=== PATIENT | male | born 1960 | race Caucasian/White ===

== ENCOUNTER 2017-09-08 19:00 | Emergency (ER) | payer MEDICAID ==
--- NOTE | 2017-09-08 19:31 | EDM.PDOC ---
ED HPI GENERAL MEDICAL PROBLEM - General Chief Complaint: ENT Problem Stated Complaint: FOOD STUCK IN HIS THROAT?? Time Seen by Provider: 09/08/17 19:08 Source of Information: Reports: Patient History Limitations: Reports: No Limitations - History of Present Illness INITIAL COMMENTS - FREE TEXT/NARRATIVE: Patient brought to ER via ambulance with food stuck in his throat. This started about 1.5 hours ago while eating supper. He was eating pork chops and thinks a piece stuck in throat. He tried to drink some water but it wouldn't go down but came back out. Then he vomited up some blood so he called 911. He denies dyspnea. - Related Data Allergies Allergy/AdvReac Type Severity Reaction Status Date / Time aspirin Allergy Nausea Verified 09/08/17 19:05 Sulfa (Sulfonamide Allergy Nausea and Verified 09/08/17 19:05 Antibiotics) Vomiting Home Meds: Home Meds Aspirin [Ecotrin] 81 mg PO DAILY 09/08/17 [History] Benazepril [Lotensin] 10 mg PO DAILY 09/08/17 [History] Metoprolol Succinate [Toprol Xl] 50 mg PO DAILY 09/08/17 [History] Niacin [Niacin ER] 1 gm PO BEDTIME 09/08/17 [History] amLODIPine Besylate [Norvasc] 5 mg PO DAILY 09/08/17 [History] ED ROS ENT - Review of Systems Review Of Systems: See Below Constitutional: Denies: Fever, Weakness HEENT: Reports: Throat Pain. Denies: Vision Change Respiratory: Denies: Shortness of Breath, Wheezing, Cough Cardiovascular: Denies: Chest Pain, Lightheadedness, Syncope GI/Abdominal: Denies: Abdominal Pain, Diarrhea, Nausea, Vomiting : Reports: No Symptoms Musculoskeletal: Reports: No Symptoms Skin: Denies: Cyanosis, Jaundice, Mottled, Pallor, Diaphoresis Neurological: Denies: Confusion, Dizziness, Headache, Seizure, Syncope, Trouble Speaking, Difficulty Walking Psychiatric: Denies: Agitation, Confusion ED EXAM, ENT - Physical Exam Exam: See Below Exam Limited By: No Limitations General Appearance: Alert, WD/WN, No Apparent Distress Eye Exam: Bilateral Eye: EOMI, Normal Inspection, PERRL Ears: Normal External Exam, Hearing Grossly Normal Nose: Normal Inspection, No Blood Mouth/Throat: Normal Inspection, Normal Gums, Normal Lips, Normal Oropharynx. No: Hoarse Voice, Muffled Voice, Throat Swelling Head: Atraumatic, Normocephalic Neck: Normal Inspection, Supple, Non-Tender, Full Range of Motion. No: Carotid Bruit Respiratory/Chest: No Respiratory Distress, Lungs Clear, Normal Breath Sounds, No Accessory Muscle Use, Chest Non-Tender Cardiovascular: Regular Rate, Rhythm, No Murmur Extremities: Normal Range of Motion Neurological: Alert, Oriented, Normal Cognition, No Motor/Sensory Deficits Psychiatric: Normal Affect, Normal Mood Skin: Warm, Dry, Intact, Normal Color, No Rash Course - Vital Signs Last Recorded V/S: Last Vital Signs Temp 100.3 F 09/08/17 19:08 Pulse 110 H 09/08/17 19:08 Resp 20 09/08/17 19:08 BP 124/65 09/08/17 19:08 Pulse Ox 95 09/08/17 19:08 - Re-Assessments/Exams Free Text/Narrative Re-Assessment/Exam: 09/08/17 19:34 We discussed his symptoms and then I suggested he try drinking water again here in the ER. This time he was able to drink more than 1/2 cup of water without any difficulty or regurgitation. He says the foreign body sensation is lessened but still present. We discussed that this sensation is typical even after the piece is dislodged and gone because of the irritation to the esophagus. I advised he see his PCP if this persists or if he has any continuing bloody vomit or stool. Patient remained stable throughout ER course and was discharged to home. Departure - Departure Time of Disposition: 19:25 Disposition: Home, Self-Care 01 Condition: Good Clinical Impression: Esophageal foreign body Qualifiers: Encounter type: initial encounter Qualified Code(s): T18.108A - Unspecified foreign body in esophagus causing other injury, initial encounter - Discharge Information Referrals: Maria T Sexton PA-C [Primary Care Provider] - Additional Instructions: 1. Eat and drink soft foods for two days to let the throat heal up. 2. If you continue to vomit blood or have blood in stool follow up with your PCP or return to ER if severe.
== END 2017-09-08 19:50 | disposition home or self-care (01) ==
LOC: KA.ED 19:00
DX: T18.128A Food in esophagus causing other injury, initial encounter (principal); Z88.6 Allergy status to analgesic agent; Z88.2 Allergy status to sulfonamides; Z79.82 Long term (current) use of aspirin; Z79.899 Other long term (current) drug therapy; X58.XXXA Exposure to other specified factors, initial encounter
CPT/HCPCS: 99284

== ENCOUNTER 2019-09-15 23:51 | Emergency (ER) | payer MEDICAID ==
[2019-09-16] MEDS ORDERED: Sodium Chloride 0.9% 1,000 ML IV ONE (00:21)
[2019-09-16 00:39] LABS: ANION GAP 16.9 mmol/L (5-15)
[2019-09-16 00:50] LABS: O2 DELIVERY DEVICE ROOM AIR
[2019-09-16 00:53] LABS: BASE EXCESS VENOUS -10 mmol/L ((-2)-3); BICARBONATE,VENOUS 17 mmol/L (23-28); O2 SATURATION VENOUS 88 %; PCO2 VENOUS 42 mmHG (41-51); PH,VENOUS 7.23 (7.31-7.41); PO2 VENOUS 65 mmHG
--- NOTE | 2019-09-16 01:34 | EDM.PDOC ---
ED HPI GENERAL MEDICAL PROBLEM - General Chief Complaint: General Stated Complaint: dizzy Time Seen by Provider: 09/16/19 00:10 Source of Information: Reports: Patient History Limitations: Reports: No Limitations - History of Present Illness INITIAL COMMENTS - FREE TEXT/NARRATIVE: 59-year-old male presents to the emergency room brought in by family member for elevated blood sugar. Patient states that he was told he was borderline diabetic in December 2017. He did not feel well this morning with complaints of dry mouth, increased thirst and polyuria. Patient states that he called the ambulance service and they checked his blood sugar and said it was greater than 500. Evidently they have told him to drink more water and he was not brought in for further evaluation. He became concerned as he wasn't feeling well during the day and was feeling dizzy. He now presents to the emergency room and [facility]. His blood sugars with fingerstick were showing greater than 500. Lab draws showed his blood sugars were actually 648. He had positive ketones in his urine he was in an anion gap metabolic acidosis. He was hyponatremic and venous blood gas pH was 7.23. The when was 34 and creatinine was 1.5. Patient was conversive with no signs of confusion. He is mildly anxious. IV fluids and insulin drip were initiated. Onset: Today Duration: Hour(s):, Getting Worse Location: Reports: Generalized Quality: Reports: Other Severity: Moderate Improves with: Reports: None Worsens with: Reports: None Associated Symptoms: Reports: Weakness. Denies: Confusion, Diaphoresis, Fever/ Chills, Headaches, Nausea/Vomiting, Rash, Shortness of Breath, Syncope - Related Data Allergies Allergy/AdvReac Type Severity Reaction Status Date / Time Penicillins Allergy Unknown Rash Verified 09/16/19 00:01 aspirin Allergy Nausea Verified 09/08/17 19:05 Sulfa (Sulfonamide Allergy Nausea and Verified 09/08/17 19:05 Antibiotics) Vomiting Home Meds: Home Meds Aspirin [Ecotrin EC] 81 mg PO DAILY 09/08/17 [History] Benazepril [Lotensin] 10 mg PO DAILY 09/08/17 [History] Metoprolol Succinate [Toprol Xl] 50 mg PO DAILY 09/08/17 [History] Niacin [Niacin ER] 1 gm PO BEDTIME 09/08/17 [History] amLODIPine Besylate [Norvasc] 5 mg PO DAILY 09/08/17 [History] Past Medical History HEENT History: Reports: Impaired Vision, Other (See Below) Other HEENT History: glasses Cardiovascular History: Reports: Hypertension Psychiatric History: Reports: Anxiety, Panic Attack Endocrine/Metabolic History: Reports: Other (See Below) (borderline diabetes December 2017) - Infectious Disease History Infectious Disease History: Reports: Chicken Pox, Measles Social & Family History - Tobacco Use Smoking Status *Q: Former Smoker Years of Tobacco use: 2 Used Tobacco, but Quit: Yes Month/Year Tobacco Last Used: 08/1979 Second Hand Smoke Exposure: No - Caffeine Use Caffeine Use: Reports: Soda Caffeine Use Comment: pip and pepsi - Recreational Drug Use Recreational Drug Use: No ED ROS GENERAL - Review of Systems Review Of Systems: See Below Constitutional: Reports: Weakness. Denies: Weight Loss HEENT: Reports: No Symptoms Respiratory: Reports: No Symptoms Cardiovascular: Reports: No Symptoms, Blood Pressure Problem Endocrine: Reports: Fatigue, High Glucose, Polyuria GI/Abdominal: Denies: Nausea, Vomiting Musculoskeletal: Reports: No Symptoms Skin: Denies: Bruising, Pruritis, Rash Neurological: Reports: Dizziness. Denies: Confusion Psychiatric: Reports: Anxiety Hematologic/Lymphatic: Reports: No Symptoms Immunologic: Reports: No Symptoms ED EXAM, GENERAL - Physical Exam Exam: See Below Exam Limited By: No Limitations General Appearance: Alert, WD/WN, No Apparent Distress Eye Exam: Bilateral Eye: EOMI, PERRL Ears: Hearing Grossly Normal Nose: Normal Inspection, Other (Dry mucosa) Throat/Mouth: Normal Inspection, Normal Voice, No Airway Compromise Head: Atraumatic, Normocephalic Neck: Normal Inspection, Supple, Non-Tender, Full Range of Motion Respiratory/Chest: No Respiratory Distress, Lungs Clear Cardiovascular: Regular Rate, Rhythm Peripheral Pulses: 2+: Carotid (L), Carotid (R), Radial (L), Radial (R) Back Exam: Normal Inspection Extremities: Normal Inspection Neurological: Alert, Oriented, No Motor/Sensory Deficits Psychiatric: Anxious Skin Exam: Intact Lymphatic: No Adenopathy Course - Vital Signs Last Recorded V/S: Last Vital Signs Temp 98.3 F 09/16/19 00:00 Pulse 92 09/16/19 00:00 Resp 18 09/16/19 00:00 BP 133/66 09/16/19 00:00 Pulse Ox 95 09/16/19 00:00 - Orders/Labs/Meds Orders: Active Orders 24 hr Category Date Time Status Insulin Regular, Human [NovoLIN R] 100 unit Med 09/16/19 00:30 Active Sodium Chloride 0.9% [Normal Saline] 99 ml IV TITRATE Medication Orders Insulin Human Regular 100 unit (/ Sodium Chloride) 100 mls @ 7.25 mls/hr IV TITRATE RONNELL; Protocol Labs: Laboratory Tests 09/15/19 09/16/19 09/16/19 Range/Units 23:55 00:10 00:10 WBC 11.92 H (5.00-10.00) 10^3/uL RBC 5.15 (4.50-6.00) 10^6/uL Hgb 16.2 (13.0-17.0) g/dL Hct 44.7 (40.0-52.0) % MCV 86.8 (82.0-92.0) fL MCH 31.5 H (27.0-31.0) pg MCHC 36.2 H (32.0-36.0) g/dL RDW 11.7 (11.5-14.5) % Plt Count 237 (150-400) 10^3/uL MPV 10.7 H (7.4-10.4) fL Immature Gran % (Auto) 0.2 (0.0-5.0) % Neut % (Auto) 78.0 H (50.0-70.0) % Lymph % (Auto) 16.4 L (20.0-40.0) % [place] % (Auto) 4.7 (2.0-8.0) % Eos % (Auto) 0.4 L (1.0-3.0) % Baso % (Auto) 0.3 (0.0-1.0) % Immature Gran # (Auto) 0.02 (0.00-0.50) 10^3/uL Neut # (Auto) 9.30 H (2.50-7.00) 10^3/uL Lymph # (Auto) 1.96 (1.00-4.00) 10^3/uL [place] # (Auto) 0.56 (0.10-0.80) 10^3/uL Eos # (Auto) 0.05 L (0.10-0.30) 10^3/uL Baso # (Auto) 0.03 (0.00-0.10) 10^3/uL VBG pH (7.31-7.41) VBG pCO2 (41-51) mmHG VBG pO2 mmHG VBG HCO3 (23-28) mmol/L VBG Total CO2 mmol/L VBG O2 Saturation % VBG Base Excess ((-2)-3) mmol/L O2 Delivery Device Sodium 122 L (136-145) mmol/L Potassium 4.7 (3.3-5.3) mmol/L Chloride 91 L (98-115) mmol/L Carbon Dioxide 18.8 L (21.0-32.0) mmol/L Anion Gap 16.9 H (5-15) mmol/L BUN 34 H (6-25) mg/dL Creatinine 1.50 H (0.51-1.17) mg/dL Est Cr Clr Drug Dosing 48.96 mL/min Estimated GFR (MDRD) 48 mL/min Glucose 648 H* (75 - 99) mg/dL POC Glucose > 500 H (74-106) mg/dl Calcium 9.2 (8.7-10.3) mg/dL Total Bilirubin 1.2 H (0.2-1.0) mg/dL AST 33 (15-37) U/L ALT 34 (12-78) U/L Alkaline Phosphatase 114 (46-116) IU/L Total Protein 7.5 (6.4-8.2) g/dL Albumin 3.86 (3.00-4.80) g/dL Amylase 56 (25-125) U/L Lipase 397 H (73-393) U/L Specimen Type Urine Color (YELLOW) Urine Appearance (CLEAR) Urine pH (5.0-9.0) Ur Specific [place] (1.005-1.030) Urine Protein (NEGATIVE) mg/dL Urine Glucose (UA) (NEGATIVE) mg/dL Urine Ketones (NEGATIVE) mg/dL Urine Occult Blood (NEGATIVE) Urine Nitrite (NEGATIVE) Urine Bilirubin (NEGATIVE) Urine Urobilinogen (0.2-1.0) E.U./dL Ur Leukocyte Esterase (NEGATIVE) 09/16/19 09/16/19 Range/Units 00:15 00:15 WBC (5.00-10.00) 10^3/uL RBC (4.50-6.00) 10^6/uL Hgb (13.0-17.0) g/dL Hct (40.0-52.0) % MCV (82.0-92.0) fL MCH (27.0-31.0) pg MCHC (32.0-36.0) g/dL RDW (11.5-14.5) % Plt Count (150-400) 10^3/uL MPV (7.4-10.4) fL Immature Gran % (Auto) (0.0-5.0) % Neut % (Auto) (50.0-70.0) % Lymph % (Auto) (20.0-40.0) % [place] % (Auto) (2.0-8.0) % Eos % (Auto) (1.0-3.0) % Baso % (Auto) (0.0-1.0) % Immature Gran # (Auto) (0.00-0.50) 10^3/uL Neut # (Auto) (2.50-7.00) 10^3/uL Lymph # (Auto) (1.00-4.00) 10^3/uL [place] # (Auto) (0.10-0.80) 10^3/uL Eos # (Auto) (0.10-0.30) 10^3/uL Baso # (Auto) (0.00-0.10) 10^3/uL VBG pH 7.23 L (7.31-7.41) VBG pCO2 42 (41-51) mmHG VBG pO2 65 mmHG VBG HCO3 17 L (23-28) mmol/L VBG Total CO2 18 mmol/L VBG O2 Saturation 88 % VBG Base Excess -10 L ((-2)-3) mmol/L O2 Delivery Device Room air Sodium (136-145) mmol/L Potassium (3.3-5.3) mmol/L Chloride (98-115) mmol/L Carbon Dioxide (21.0-32.0) mmol/L Anion Gap (5-15) mmol/L BUN (6-25) mg/dL Creatinine (0.51-1.17) mg/dL Est Cr Clr Drug Dosing mL/min Estimated GFR (MDRD) mL/min Glucose (75 - 99) mg/dL POC Glucose (74-106) mg/dl Calcium (8.7-10.3) mg/dL Total Bilirubin (0.2-1.0) mg/dL AST (15-37) U/L ALT (12-78) U/L Alkaline Phosphatase (46-116) IU/L Total Protein (6.4-8.2) g/dL Albumin (3.00-4.80) g/dL Amylase (25-125) U/L Lipase (73-393) U/L Specimen Type Urinvoid Urine Color Yellow (YELLOW) Urine Appearance Clear (CLEAR) Urine pH 5.0 (5.0-9.0) Ur Specific [place] 1.010 (1.005-1.030) Urine Protein Negative (NEGATIVE) mg/dL Urine Glucose (UA) >=1000 H (NEGATIVE) mg/dL Urine Ketones 15 H (NEGATIVE) mg/dL Urine Occult Blood Moderate H (NEGATIVE) Urine Nitrite Negative (NEGATIVE) Urine Bilirubin Negative (NEGATIVE) Urine Urobilinogen 0.2 (0.2-1.0) E.U./dL Ur Leukocyte Esterase Negative (NEGATIVE) Meds: Medications Generic Name Dose Route Start Last Admin Trade Name Freq PRN Reason Stop Dose Admin Insulin Human Regular 100 unit 100 mls @ 7.25 mls/hr 09/16/19 00:30 / Sodium Chloride IV TITRATE RONNELL Protocol 0.1 UNITS/KG/HR Discontinued Medications Generic Name Dose Route Start Last Admin Trade Name Freq PRN Reason Stop Dose Admin Sodium Chloride 1,000 mls @ 1,000 mls/hr 09/16/19 00:21 09/16/19 00:55 Normal Saline IV 09/16/19 01:20 1,000 mls/hr .BOLUS ONE Administration - Re-Assessments/Exams Free Text/Narrative Re-Assessment/Exam: 09/16/19 01:37 1 L of normal saline was started running wide open. Patient was started on insulin drip 0.1 units per kilogram per hour Departure - Departure Time of Disposition: 01:48 Disposition: DC/Tfer to Acute Hospital 02 Condition: Fair Clinical Impression: DKA (diabetic ketoacidosis) Qualifiers: Diabetes mellitus type: other specified (including CAROLEE) Diabetes mellitus complication detail: without coma Qualified Code(s): E13.10 - Other specified diabetes mellitus with ketoacidosis without coma - Discharge Information Instructions: Diabetic Ketoacidosis Forms: ED Department Discharge Sepsis Event Note - Evaluation Sepsis Screening Result: No Definite Risk - Focused Exam Vital Signs: Vital Signs Temp Pulse Resp BP Pulse Ox 09/16/19 00:00 98.3 F 92 18 133/66 95 Date Exam was Performed: 09/16/19 Time Exam was Performed: 01:29 - My Orders Last 24 Hours: My Active Orders 09/16/19 00:30 Insulin Regular, Human [NovoLIN R] 100 unit Sodium Chloride 0.9% [Normal Saline] 99 ml IV TITRATE - Assessment/Plan Last 24 Hours: My Active Orders 09/16/19 00:30 Insulin Regular, Human [NovoLIN R] 100 unit Sodium Chloride 0.9% [Normal Saline] 99 ml IV TITRATE Assessment:: Diabetic ketoacidosis Plan: 1. Patient is stable. Normal saline 1 L was started run in wide open. Insulin drip regular insulin started at 0.1 units kilogram per hour 2. Transfer by ALS to [facility]. 3. Patient will be a direct admit to the ICU unit. 4. Patient was accepted by Dr. Mingo crockettist
== END 2019-09-16 01:40 ==
LOC: KA.ED 23:51
DX: E13.10 Other specified diabetes mellitus with ketoacidosis without coma (principal); I10 Essential (primary) hypertension; Z79.82 Long term (current) use of aspirin; Z79.899 Other long term (current) drug therapy; Z87.891 Personal history of nicotine dependence; Z88.0 Allergy status to penicillin; Z88.2 Allergy status to sulfonamides; Z88.6 Allergy status to analgesic agent
CPT/HCPCS: 36415; 80053; 81003; 82150; 82803; 82962; 83690; 85025; 96360; 99285-25; A9270-GY; J7030; J7050

== ENCOUNTER 2023-03-22 00:04 | Emergency (ER) | payer MEDICAID | END 2023-03-22 00:45 | disposition home or self-care (01) | LOC: KA.ED 00:04 | DX: M62.08 Separation of muscle (nontraumatic), other site (principal); I10 Essential (primary) hypertension; Z88.0 Allergy status to penicillin; Z88.2 Allergy status to sulfonamides; Z88.8 Allergy status to other drugs, medicaments and biological substances; Z79.82 Long term (current) use of aspirin | CPT/HCPCS: 99284 ==